=== PATIENT | male | born 1990 | race African-American/Black ===

== ENCOUNTER 2019-01-14 20:32 | Emergency (ER) | payer OTHER ==
[2019-01-14 20:39] VITALS: BP 106/56; PULSE 71; TEMP 97.6; BMI 22.7
--- NOTE | 2019-01-14 20:47 | PDOC ---
Rapid Medical Evaluation Chief Complaint: Injury Medical Evaluation: Allergies Allergy/AdvReac Type Severity Reaction Status Date / Time No Known Allergies Allergy Verified 01/14/19 20:39 Vital Signs Temp Pulse Resp BP Pulse Ox 97.6 F 71 17 106/56 L 97 01/14/19 20:34 01/14/19 20:34 01/14/19 20:34 01/14/19 20:34 01/14/19 20:34 01/14/19 20:45 Pt presents for evaluation of L ankle pain starting today after he twisted his ankle while walking Exam: TTP of the lateral malleolus with associated swelling Orders: x-ray Pt to proceed to the ER for further evaluation Discharge Disposition - Diagnosis Ankle pain Qualifiers: Chronicity: acute Laterality: left Qualified Code(s): M25.572 - Pain in left ankle and joints of left foot - Referrals - Patient Instructions - Post Discharge Activity
--- NOTE | 2019-01-14 22:23 | PDOC ---
History of Present Illness - General Chief Complaint: Injury Stated Complaint: FALL Time Seen by Provider: 01/14/19 20:47 - History of Present Illness Initial Comments: 01/14/19 22:21 28-year-old male without comorbidities presents for evaluation of left ankle pain. 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 Past History - Past Medical History Allergies/Adverse Reactions: Allergies Allergy/AdvReac Type Severity Reaction Status Date / Time No Known Allergies Allergy Verified 01/14/19 20:39 COPD: No - Immunization History Immunization Up to Date: Yes - Psycho Social/Smoking Cessation Hx Smoking History: Current every day smoker Have you smoked in the past 12 months: Yes Information on smoking cessation initiated: Yes Hx Alcohol Use: No Drug/Substance Use Hx: No Review of Systems - Review of Systems Musculoskeletal: Yes: Joint Pain *Physical Exam - Vital Signs Last Vital Signs Temp Pulse Resp BP Pulse Ox 97.6 F 71 17 106/56 L 97 01/14/19 20:34 01/14/19 20:34 01/14/19 20:34 01/14/19 20:34 01/14/19 20:34 - Physical Exam 01/14/19 22:22 Left ankle skin color and temperature normal range of motion is full. There is no tenderness about the knee proximal fibula along its distal course lateral malleolus medial or lateral malleolus base of the fifth metatarsal navicular no instability mild tenderness about the Achilles negative Car's test neurovascular intact thigh and calf are soft and nontender Medical Decision Making - Medical Decision Making 01/14/19 22:22 No evidence of fracture trauma or destructive process on x-ray. This is an Achilles strain. Follow-up with orthopedics weight-bear as tolerated with crutches discussed use of Tylenol Motrin for pain. Discharge - Discharge Information Problems reviewed: Yes Clinical Impression/Diagnosis: Strain of Achilles tendon Ankle pain Qualifiers: Chronicity: acute Laterality: left Qualified Code(s): M25.572 - Pain in left ankle and joints of left foot Condition: Stable Disposition: HOME - Admission No - Follow up/Referral Referrals: Sagar Allred DO [Staff Physician] - - Patient Discharge Instructions Additional Instructions: You may weight-bear as tolerated crutches. Follow-up with orthopedic surgery in 2 to 3 days for further evaluation and treatment options. Tylenol Motrin as directed for pain and swelling. Return to the emergency room for worsening symptoms. - Post Discharge Activity Work/Back to School Note: Back to Work
== END 2019-01-14 22:52 | disposition home or self-care (01) ==
LOC: JERFT 20:32
DX: S86.012A Strain of left Achilles tendon, initial encounter (principal); X58.XXXA Exposure to other specified factors, initial encounter; Y93.89 Activity, other specified; Y92.89 Other specified places as the place of occurrence of the external cause; F17.210 Nicotine dependence, cigarettes, uncomplicated
CPT/HCPCS: 73610-TC-LT-FY; 73630-TC-LT; 99281-25